=== PATIENT | female | born 1945 | race Caucasian/White ===

== ENCOUNTER 2020-01-25 09:00 | Outpatient (CLI) | payer OTHER, SELFPAY | END 2020-01-27 13:00 | disposition other institution (70) | PROVIDERS: PCP Internal Medicine; Visit Provider Internal Medicine | DX: H91.90 Unspecified hearing loss, unspecified ear (principal) | CPT/HCPCS: 92557; 92567 ==

== ENCOUNTER 2020-03-17 07:55 | Outpatient (CLI) | payer OTHER, SELFPAY ==
--- NOTE | ~2020-03-17 | DEXA_ITS ---
Bone Density Report Name: Stephanie Mcarthur Age: 74 Sex: Female Ethnicity: White Date of : 1945 Indication: postmenopausal; height loss; prior fracture; cancer; Referring Provider: ANNIE DESAI Study: Bone densitometry was performed. Exam Date: March 17, 2020 Accession number: [id number] Bone Density: Region BMD T-score Z-score Classification AP Spine (L1-L4) 0.818 -2.1 0.2 Osteopenia Femoral Neck (Left) 0.642 -1.9 0.1 Osteopenia Total Hip (Left) 0.733 -1.7 -0.1 Osteopenia Total Hip Bilateral Avg 0.698 -2.0 -0.4 Osteopenia Femoral Neck (Right) 0.567 -2.5 -0.6 Osteoporosis Total Hip (Right) 0.662 -2.3 -0.7 Osteopenia World Health Organization criteria for BMD impression classify patients as: Normal (T-score at or above -1.0), Osteopenia (T-score between -1.0 and -2.5), or Osteoporosis (T-score at or below -2.5). 10-year Fracture Risk: FRAX not reported because: Some T-score for Spine Total or Hip Total or Femoral Neck at or below -2.5 Clinical Information Provided by Patient: Has had a low trauma fracture Has the following medical conditions: Cancer Patient maximum height was 64.5 Menopause Age: 53 No regular weight bearing exercise Onset of menses at age 13 Number of children 1 Impression: The patient has established osteoporosis, based on the Right Femoral Neck T-score and the existence of a prior fracture. The patient has risk factors, including: previous fracture. Discussion: HIGH RISK OF FRACTURE. BONE DENSITY IS UNDESIRABLY LOW AT ONE OR MORE SKELETAL SITES, CONSISTENT WITH POSTMENOPAUSAL OSTEOPOROSIS. This patient's lowest T-score, in a patient who has previously fractured, meets the World Health Organization's (WHO) criteria for severe osteoporosis. In untreated patients, the risk of osteoporotic fracture increases approximately two-fold for each 1.0 SD decrease in T-score. Low bone density is not the only risk factor for fracture; also consider factors such as patient's age, frailty or poor health, risk of falling, risk of injury, previous osteoporotic fracture, family history of osteoporosis, cigarette smoking, low body weight, etc. Not everyone with low bone mineral density has osteoporosis; osteomalacia and other metabolic bone disorders should also be considered. Patients who have osteoporosis should be evaluated for specific diseases and conditions (secondary causes) that may cause or contribute to bone loss. The [place] [employer]ocrinologists (AACE) and National Osteoporosis Foundation (NOF) recommend pharmacologic intervention for all postmenopausal women whose T-score is in this range. The patient should follow a healthful lifestyle (good nutrition with adequate calcium and vitamin D, and appropriate weight-bearing exercise). Follow-Up: Consider a repeat BMD and Gurinder
== END 2020-03-17 07:56 | disposition home or self-care (01) ==
LOC: ANHIMG 07:58
PROVIDERS: PCP Internal Medicine; Visit Provider Internal Medicine
DX: Z78.0 Asymptomatic menopausal state (principal); M85.89 Other specified disorders of bone density and structure, multiple sites; M81.0 Age-related osteoporosis without current pathological fracture
CPT/HCPCS: 77080

== ENCOUNTER → 2020-05-07 02:28 | Outpatient (CLI) | payer OTHER, SELFPAY ==
[2020-05-07 20:23] LABS: SARS-CoV-2 RNA PCR Negative
== END ==
PROVIDERS: PCP Internal Medicine; Visit Provider Internal Medicine Gastroenterology
DX: Z01.812 Encounter for preprocedural laboratory examination (principal); Z20.822 Contact with and (suspected) exposure to COVID-19
CPT/HCPCS: C9803; U0003; U0005

== ENCOUNTER 2020-05-11 00:50 | Day surgery (SDC) | payer OTHER, SELFPAY ==
[2020-04-27 14:56] VITALS: BMI 24.5
[2020-05-11 06:59] VITALS: BP 129/71; PULSE 72; RESP 18; TEMP 37; O2SAT 99; BMI 23.1
[2020-05-11] MEDS: LACTATED RINGERS 1,000 ML 150 ML IV CONT (07:10)
--- NOTE | 2020-05-11 07:20 | PM.HPGS ---
History of Present Illness History of Present Illness Consent: Risks, benefits, and alternatives have been discussed and questions answered. Patient agrees to proceed with procedure. Chief complaint: Neoplasm Screening Narrative: Stephanie Mcarthur is a 74 year old female referred for colon cancer screening. Her mother had colon cancer Review of Systems Review of Systems: All systems reviewed & are unremarkable except as noted in HPI and below PMFSH Past Medical History Medical History (Updated 05/11/20 @ 07:21 by Vamsi Kidd MD) Atypical chest pain Shoulder pain, bilateral Family History Family History Father Hypertension Family history of coronary artery disease Carcinoma of colon Mother Hypertension Carcinoma of colon Grandparent Diabetes mellitus Family history of malignant neoplasm of breast Sibling Family history of malignant neoplasm Other Family history of heart disease in male family member before age 55 Family history of malignant neoplasm of male breast Social History Social History Smoking status: Never smoker Second hand tobacco smoke exposure: No Alcohol intake: current Drinks per week: 3 Substance use type: does not use Living arrangements: with family Spiritual care concerns: No Meds Home Medications and Allergies Home Medications Medication Instructions Recorded Confirmed Type aspirin 81 mg tablet,delayed 81 mg PO DAILY 02/02/19 05/11/20 History release omeprazole 20 mg capsule,delayed See Rx Instructions .ROUTE 12/28/19 05/11/20 Rx release .COMPLEX #90 cap alprazolam 0.25 mg tablet 0.25 mg PO BID #180 tablet 02/15/20 05/11/20 Rx Allergies Allergy/AdvReac Type Severity Reaction Status Date / Time mercury (elemental) Allergy Unknown UNKNOWN Verified 05/11/20 06:57 Vital Signs Vital Signs - 24 hr 05/11/20 06:59 Temperature 37.0 C Pulse Rate 72 Respiratory Rate 18 Blood Pressure 129/71 Pulse Oximetry 99 Exam Resp: Auscultation: clear to auscultation bilaterally Cardio: Rate: regular rate Rhythm: regular rhythm GI: GI Palp: Yes Soft to palpation and No Tenderness to palpation present (GI) Assessment and Plan Assessment and plan (1) Colon cancer screening: Code(s): Z12.11 - Encounter for screening for malignant neoplasm of colon Status: Acute Assessment and Plan: Colonoscopy with possible biopsy or polypectomy or cautery or injection of substances.
--- NOTE | 2020-05-11 07:25 | WPDANESEPPF ---
Anes - Initial Pre Proc Eval Procedure: Operation Date: 05/11/20 08:00 Proposed Procedures p Screening Colonoscopy - Vamsi Kidd MD Date/Time: 05/11/20 07:25 Surgeon: Vamsi Kidd MD Pre Op Diagnosis: Neoplasm Screening Patient Data Age: 74 Gender: F Height: 5 ft 4 in Weight: 61.3 kg Last Vital Signs Temp 98.6 F 05/11/20 06:59 Pulse 72 05/11/20 06:59 Resp 18 05/11/20 06:59 BP 129/71 05/11/20 06:59 Pulse Ox 99 05/11/20 06:59 Allergies Allergy/AdvReac Type Severity Reaction Status Date / Time mercury (elemental) Allergy Unknown UNKNOWN Verified 05/11/20 06:57 Home Medications Medication Instructions Recorded Confirmed Type aspirin 81 mg tablet,delayed 81 mg PO DAILY 02/02/19 05/11/20 History release omeprazole 20 mg capsule,delayed See Rx Instructions .ROUTE 12/28/19 05/11/20 Rx release .COMPLEX #90 cap alprazolam 0.25 mg tablet 0.25 mg PO BID #180 tablet 02/15/20 05/11/20 Rx Patient hx anesthesia problems: none Family hx anesthesia problems: none PMFSH Past Medical History Medical History (Updated 05/11/20 @ 07:21 by Vamsi Kidd MD) Atypical chest pain Shoulder pain, bilateral Family History Family History Father Hypertension Family history of coronary artery disease Carcinoma of colon Mother Hypertension Carcinoma of colon Grandparent Diabetes mellitus Family history of malignant neoplasm of breast Sibling Family history of malignant neoplasm Other Family history of heart disease in male family member before age 55 Family history of malignant neoplasm of male breast Social History Social History Smoking status: Never smoker Second hand tobacco smoke exposure: No Alcohol intake: current Drinks per week: 3 Substance use type: does not use Living arrangements: with family Spiritual care concerns: No Anes - Eval Final PreProcedure Day of Procedure 05/11/20 07:25 Patient weight: normal Heart: regular rate and rhythm Lungs: clear to auscultation Airway: Mallampati scale class II Neurological: alert and oriented Last oral intake: >/= 8 hours ASA classification: II Emergent: no Anesthetic plan: proceed Anesthesia type and monitoring: general GIVS and standard monitoring Informed Consent: The patient's anesthetic plan and its attendant risks and benefits were discussed with the patient/family/POA. Questions were solicited and answers provided to the satisfaction of the patient/family/POA.
[2020-05-11 08:12] VITALS: BP 101/62; PULSE 71; RESP 29; O2SAT 100
[2020-05-11 08:22] VITALS: BP 105/59; PULSE 70; RESP 29; O2SAT 100
[2020-05-11 08:32] VITALS: BP 114/72; PULSE 63; RESP 20; O2SAT 100
== END 2020-05-11 08:39 | disposition home or self-care (01) ==
PROVIDERS: PCP Internal Medicine; Visit Provider Internal Medicine Gastroenterology
PROC: 0DJD8ZZ Inspection of Lower Intestinal Tract, Via Natural or Artificial Opening Endoscopic (ICD-10-PCS; CPT 45378; principal; 2020-05-11 08:00)
DX: Z12.11 Encounter for screening for malignant neoplasm of colon (principal); K57.30 Diverticulosis of large intestine without perforation or abscess without bleeding; Z80.0 Family history of malignant neoplasm of digestive organs; Z79.82 Long term (current) use of aspirin
CPT/HCPCS: G0105; C9803; J2704; J7120; U0003; U0005

== ENCOUNTER 2021-01-13 10:40 | Emergency (ER) | payer OTHER, SELFPAY ==
[2021-01-13] VITALS (8 sets, daily range): BP systolic 120–139; BP diastolic 76–89; PULSE 69–95; RESP 18–27; TEMP 36.4–36.5; O2SAT 96–100
[2021-01-13 14:57] LABS: Basophils Percent Auto 0.2 % (0.2-1.2); Eosinophils Percent Auto 0.2 % (0-4.4); Hematocrit 44.6 % (37.0-47.0); Hemoglobin 14.9 g/dL (12.0-15.0); Immature Granulocyte Absolute 0.06 K/mm3 (0.00-0.031); Immature Granulocyte Percent A 0.5 % (0-0.5); Lymphocytes Absolute Auto 0.46 K/mm3 (0.9-3.2); Lymphocytes Percent Auto 3.7 % (18.3-44.2); Mean Corpuscular HGB Conc 33.4 g/dl (32-36); Mean Corpuscular Hemoglobin 28.7 pg (26-34); Mean Corpuscular Volume 85.9 fl (80-100); Mean Platelet Volume 8.6 fl (7.4-10.4); Monocytes Absolute Auto 0.6 K/mm3 (0.1-0.6); Monocytes Percent Auto 5.2 % (2.6-8.5); Neutrophils Absolute Auto 11.1 K/mm3 (1.3-6.7); Neutrophils Percent Auto 90.2 % (45.5-73.1); Platelet Count Result 204 k/mm3 (150-375); Red Blood Count 5.19 M/mm3 (4.2-5.4); Red Cell Distribution Width 12.1 % (11.5-14.5); White Blood Count 12.3 K/mm3 (4.5-10.0)
[2021-01-13] MEDS: ONDANSETRON INJ 4 MG/2 ML VIAL IV PUSH (15:03)
[2021-01-13] MEDS: PANTOPRAZOLE SODIUM IV 40 MG VIAL IV PUSH (15:03)
[2021-01-13 15:08] LABS: Alanine Aminotransferase 21 U/L (4-35); Albumin Level 4.3 g/dL (3.5-5.1); Alkaline Phosphatase 70 U/L (38-126); Anion Gap 9 mmol/L (8-16); Aspartate Amino Transferase 32 U/L (14-36); Bilirubin,Total 0.7 mg/dL (0.2-1.3); Blood Urea Nitrogen 18 mg/dL (7-17); Calcium 8.9 mg/dL (8.4-10.2); Carbon Dioxide 22 mmol/L (22-30); Chloride 107 mmol/L (98-107); Estimated Glomerular Filt Rate > 60; Glucose 101 mg/dL (65-110); Potassium 4.1 mmol/L (3.4-5.0); Sodium 138 mmol/L (137-145)
[2021-01-13 15:10] LABS: INR 0.9; Prothrombin Time 12.5 Seconds (11.1-14.7)
[2021-01-13 15:11] LABS: Partial Thromboplastin Time 20.8 SECONDS (22.3-36.8)
--- NOTE | 2021-01-13 15:28 | ED.GIBLEED ---
HPI - GI Bleed General Chief complaint: GI Bleed Stated complaint: Vomiting blood+ Time Seen by Provider: 01/13/21 13:42 Source: patient and RN notes reviewed Mode of arrival: ambulatory Limitations: no limitations History of Present Illness HPI Narrative: This is 75 year old female who presents for evaluation of blood in emesis. Patient states today around 10 am she developed nonbilious emesis with mucous streak of blood but no clots. She reports she has had 3 other episodes of emesis. Her 2nd episode was pink and 3rd and 4th did not have any blood. She denies abdominal pain, fever, or dizziness. She does not take any blood thinner. She reports an episode of diarrhea but denies blood in her stool or melena. She is not on anticoagulation. Related Data Home Medications Medication Instructions Recorded Confirmed aspirin 81 mg tablet,delayed 81 mg PO DAILY 02/02/19 08/29/20 release Allergies Allergy/AdvReac Type Severity Reaction Status Date / Time No Known Allergies Allergy Verified 08/29/20 15:10 Review of Systems Review of Systems: All systems reviewed & are unremarkable except as noted in HPI and below PMFSH Past Medical History Medical History (Updated 01/14/21 @ 00:01 by [facility]) Atypical chest pain Shoulder pain, bilateral Family History Family History Father Hypertension Family history of coronary artery disease Carcinoma of colon Mother Hypertension Carcinoma of colon Grandparent Diabetes mellitus Family history of malignant neoplasm of breast Sibling Family history of malignant neoplasm Other Family history of heart disease in male family member before age 55 Family history of malignant neoplasm of male breast Social History Social History Second hand tobacco smoke exposure: No Alcohol intake: current Drinks per week: 3 Substance use type: does not use Spiritual care concerns: No Exam Const: General: no acute distress and alert Orientation/consciousness: patient oriented x3 HENMT: Head: normocephalic and atraumatic Eyes: EOM: EOMs intact bilaterally Chest: Chest palpation & inspection: normal inspection of the chest Resp: Effort & Inspection: normal respiratory effort and no retractions Auscultation: clear to auscultation bilaterally Cardio: Rate: regular rate Rhythm: regular rhythm Heart sounds: no murmurs GI: GI Palp: Yes Soft to palpation, No Tenderness to palpation present (GI) and No Guarding due to palpation present (GI) Auscultation: normal bowel sounds Other: guaiac negative Back/Spine/Pelvis: Back: no CVA tenderness Skin: General skin exam: normal color Neuro: General: patient oriented x3, moves all extremities and CN's II-XI intact bilaterally Psych: Mental Status: mental status grossly normal Affect: normal affect Course Reevaluation(s) Reevaluation #1: Patient has no complaints here. She is guaiac negative with normal vital signs and hemoglobin. She was able to drink without nausea, vomiting or abdominal pain. I discussed discharge plan Date: 01/13/21 Time: 17:32 Vital Signs Vital signs: Vital Signs Temperature 97.7 F 01/13/21 10:51 Pulse Rate 89 01/13/21 10:51 Respiratory Rate 18 01/13/21 10:51 Blood Pressure 135/89 01/13/21 10:51 Pulse Oximetry 100 01/13/21 10:51 Temperature 97.6 F 01/13/21 12:41 Pulse Rate 69 01/13/21 17:51 Respiratory Rate 20 01/13/21 17:51 Blood Pressure 125/87 01/13/21 17:51 Pulse Oximetry 96 01/13/21 16:15 MDM - GI Bleed Lab Data Attestation: I reviewed the patient's lab results. Result diagrams: 01/13/21 14:39 01/13/21 14:39 Labs: Lab Results 01/13/21 01/13/21 01/13/21 Range/Units 14:39 14:39 14:39 WBC 12.3 H (4.5-10.0) K/mm3 RBC 5.19 (4.2-5.4) M/mm3 Hgb 14.9 (12.0-
[2021-01-13] MEDS: SODIUM CHLORIDE 0.9% IV 1,000 ML 999 ML IV CONT (16:21)
== END 2021-01-13 17:52 | disposition home or self-care (01) ==
PROVIDERS: Emergency Provider General Practice; PCP Internal Medicine
DX: R11.2 Nausea with vomiting, unspecified (principal); Z79.82 Long term (current) use of aspirin
CPT/HCPCS: 36415; 80053; 85025; 85610; 85730; 86850; 86900; 86901; 96361; 96374; 96375; 99284; C9113; J2405; J7030

== ENCOUNTER 2022-02-28 08:22 | Outpatient (CLI) | payer OTHER, SELFPAY ==
[2022-02-28 20:02] LABS: Alanine Aminotransferase 25 U/L (6-35); Albumin Level 4.2 g/dL (3.5-5.1); Alkaline Phosphatase 68 U/L (38-126); Anion Gap 3 mmol/L (8-16); Aspartate Amino Transferase 29 U/L (14-36); Bilirubin,Total 0.6 mg/dL (0.2-1.3); Blood Urea Nitrogen 17 mg/dL (7-17); Calcium 8.6 mg/dL (8.4-10.2); Carbon Dioxide 32 mmol/L (22-30); Chloride 104 mmol/L (98-107); Cholesterol 197 mg/dL (0-200); Estimated Glomerular Filt Rate > 60; Glucose 82 mg/dL (65-110); HDL Direct 73 mg/dL; Potassium 4.4 mmol/L (3.4-5.0); Sodium 139 mmol/L (137-145); Triglycerides 63 mg/dL (<150)
[2022-02-28 20:13] LABS: LDL Cholesterol Direct 95 mg/dL
== END 2022-02-28 08:23 | disposition home or self-care (01) ==
LOC: ANHGOSHLAB 08:23
PROVIDERS: PCP Family Medicine; Visit Provider Family Medicine
DX: Z13.220 Encounter for screening for lipoid disorders (principal); Z13.228 Encounter for screening for other metabolic disorders; Z13.29 Encounter for screening for other suspected endocrine disorder
CPT/HCPCS: 36415; 80053; 80061; 84443

== ENCOUNTER 2022-05-02 07:32 | Outpatient (CLI) | payer OTHER, SELFPAY ==
--- NOTE | ~2022-05-02 | DEXA_ITS ---
Bone Density Report Name: KRIS DIA Age: 76 Sex: Female Ethnicity: White Date of : 1945 Indication: osteopenia; height loss; prior fracture; cancer; postmenopausal Referring Provider: NISREEN URIBE Study: Bone densitometry was performed. Exam Date: May 02, 2022 Accession number: [id number] Bone Density: Region BMD T-score Z-score Classification AP Spine(L1-L4) 0.839 -1.9 0.5 Osteopenia Femoral Neck (Left) 0.597 -2.3 -0.2 Osteopenia Total Hip (Left) 0.691 -2.1 -0.3 Osteopenia Femoral Neck (Right) 0.573 -2.5 -0.4 Osteoporosis Total Hip (Right) 0.683 -2.1 -0.4 Osteopenia Total Hip Mean 0.687 -2.1 -0.4 Osteopenia World Health Organization criteria for BMD impression classify patients as: Normal (T-score at or above -1.0), Osteopenia (T-score between -1.0 and -2.5), or Osteoporosis (T-score at or below -2.5). 10-year Fracture Risk: FRAX not reported because: Some T-score for Spine Total or Hip Total or Femoral Neck at or below -2.5 Previous Exams: Region Exam Age BMD T-score BMD Change BMD Change Date g/cm2 vs Baseline vs Previous AP Spine (L1-L4) 05/02/2022 76 0.839 -1.9 0.020 (2.5%) 0.020 (2.5%) 03/17/2020 74 0.818 -2.1 Total Hip(Left) 05/02/2022 76 0.691 -2.1 -0.042 (-5.7%) -0.042 (-5.7%) 03/17/2020 74 0.733 -1.7 Total Hip(Right) 05/02/2022 76 0.683 -2.1 0.021 (3.1%) 0.021 (3.1%) 03/17/2020 74 0.662 -2.3 *Denotes significance at 95% confidence level, LSC for AP Spine = 0.022 g/cm2, LSC for Total Hip = 0.027 g/cm2 Clinical Information Provided by Patient: Has had a low trauma fracture Has used the following medications: Vitamin D, Calcium Has the following medical conditions: Cancer Patient maximum height was 64 Menopause Age: 53 Onset of menses at age 14 Number of children 1 Impression: The patient has established osteoporosis, based on the Right Femoral Neck T-score and the existence of a prior fracture. The patient has risk factors, including: previous fracture. The BMD for the Total Hip(Left) decreased, changing by -5.7% since the last DXA exam. Discussion: HIGH RISK OF FRACTURE. BONE DENSITY IS UNDESIRABLY LOW AT ONE OR MORE SKELETAL SITES, CONSISTENT WITH POSTMENOPAUSAL OSTEOPOROSIS. This patient's lowest T-score, in a patient who has previously fractured, meets the World Health Organization's (WHO) criteria for severe osteoporosis. In untreated patients, the risk of osteoporotic f
== END 2022-05-02 07:33 | disposition home or self-care (01) ==
PROVIDERS: PCP Family Medicine; Visit Provider Obstetrics & Gynecology
DX: Z78.0 Asymptomatic menopausal state (principal); M85.88 Other specified disorders of bone density and structure, other site; M85.852 Other specified disorders of bone density and structure, left thigh; M85.851 Other specified disorders of bone density and structure, right thigh; M81.0 Age-related osteoporosis without current pathological fracture
CPT/HCPCS: 77080

== ENCOUNTER 2022-12-14 06:25 | Emergency (ER) | payer OTHER, SELFPAY ==
--- NOTE | ~2022-12-14 | XR_ITS ---
EXAMINATION: XR finger 2nd RT min 2V DATE: 12/14/2022 07:15 INDICATION: Right hand second digit laceration. TECHNIQUE: 3 views of right hand second digit were obtained. COMPARISON: None. FINDINGS: Bone alignment is normal. No fracture. There is mild osteoarthritis of second metacarpophal angeal joint and proximal and distal interphalangeal joints. There is a laceration of the tip of the finger. No radiopaque foreign body. IMPRESSION: 1. Polyarticular osteoarthritis. Reviewed, dictated and finalized at location E.
[2022-12-14 06:27] VITALS: BP 166/81; PULSE 84; RESP 16; TEMP 36.1; O2SAT 100
--- NOTE | 2022-12-14 07:31 | ED.WOUNDLAC ---
HPI - Wound/Laceration General Chief Complaint: Wound/Laceration Stated Complaint: cut to finger Time Seen by Provider: 12/14/22 07:10 Source: patient Mode of arrival: ambulatory Limitations: no limitations History of Present Illness HPI narrative: Patient lacerated the tip of the right index while trying to manage a toaster, prior to arrival. No other injuries. Bleeding controlled Related Data Allergies Allergy/AdvReac Type Severity Reaction Status Date / Time No Known Allergies Allergy Verified 12/14/22 06:44 Review of Systems Review of Systems: All systems reviewed & are unremarkable except as noted in HPI and below PMFSH Past Medical History Medical History Atypical chest pain Shoulder pain, bilateral Surgical History Surgical History History of cholecystectomy History of lumpectomy of left breast History of tubal ligation Family History Family History Father Hypertension Family history of coronary artery disease Carcinoma of colon Mother Hypertension Carcinoma of colon Grandparent Diabetes mellitus Family history of malignant neoplasm of breast Sibling Family history of malignant neoplasm Other Family history of heart disease in male family member before age 55 Family history of malignant neoplasm of male breast Social History Social History Smoking status: Never smoker Second hand tobacco smoke exposure: No Alcohol intake: current Drinks per week: 3 Substance use: never Substance use type: does not use Lack of Transportation: No Lack of Food: Never True Current Housing: I Have Housing Concerned About Future Housing: No Difficulty Paying Gas/Electric Bills: No Difficulty Paying for Meds: No Currently Unemployed: No Education: Bachelor's Degree Difficulty w/ Childcare or Family Care: No Living arrangements: alone Additional living arrangements comments: 10/2021 Occupation/Education: retired Gender identity (if verbalized by the patient): Female Sexual Orientation (if Verbalized by the Patient): Straight or Heterosexual Spiritual care concerns: No Agree to blood products: Yes Exam Narrative: General appearance: Well-developed, well-nourished Skin: Normal color Vascular: Normal peripheral pulses, normal capillary refill. Musculoskeletal: Normal range of motion, nontender back, right index that showed 3 mm flap laceration at the palmar side of the tip. No active bleeding. Subcutaneous. Neurologic: Alert and oriented ?3, FINANCIAL SOLUTIONS ADVISOR is normal as tested, no gross motor deficit Course Vital Signs Vital signs: Vital Signs Temperature 36.1 C L 12/14/22 06:27 Pulse Rate 84 12/14/22 06:27 Respiratory Rate 16 12/14/22 06:27 Blood Pressure 166/81 H 12/14/22 06:27 Pulse Oximetry 100 12/14/22 06:27 Oxygen Delivery Room Air 12/14/22 06:27 Temperature 36.1 C L 12/14/22 06:27 Pulse Rate 84 12/14/22 06:27 Respiratory Rate 16 12/14/22 06:27 Blood Pressure 166/81 H 12/14/22 06:27 Pulse Oximetry 100 12/14/22 06:27 Oxygen Delivery Room Air 12/14/22 06:27 Procedures Laceration Laceration 1: Date: 12/14/22 Time: 08:25 Site: hand Side (If applicable): right Size (cm): 0.3 Description: flap Depth: simple, single layer Local Anesthetic: none Pre-repair: wound explored and irrigated ====== Skin Level ====== Skin layer closed with:
[2022-12-14 08:45] VITALS: BP 130/70; PULSE 70; RESP 16; O2SAT 98
== END 2022-12-14 08:45 | disposition home or self-care (01) ==
PROVIDERS: Emergency Provider Emergency Medicine; PCP Family Medicine
DX: S61.210A Laceration without foreign body of right index finger without damage to nail, initial encounter (principal); Z90.49 Acquired absence of other specified parts of digestive tract; M19.041 Primary osteoarthritis, right hand; W26.8XXA Contact with other sharp object(s), not elsewhere classified, initial encounter
CPT/HCPCS: 12001; 73140; 90471; 99283

== ENCOUNTER 2023-03-27 09:10 | Outpatient (CLI) | payer OTHER, SELFPAY ==
[2023-03-27 12:32] LABS: Alanine Aminotransferase 36 U/L (6-35); Albumin Level 4.2 g/dL (3.5-5.1); Alkaline Phosphatase 60 U/L (38-126); Anion Gap 5 mmol/L (8-16); Aspartate Amino Transferase 51 U/L (14-36); Bilirubin,Total 0.5 mg/dL (0.2-1.3); Blood Urea Nitrogen 14 mg/dL (7-17); Calcium 9.6 mg/dL (8.4-10.2); Carbon Dioxide 29 mmol/L (22-30); Chloride 105 mmol/L (98-107); Cholesterol 195 mg/dL (0-200); Estimated Glomerular Filt Rate > 60; Glucose 116 mg/dL (65-110); HDL Direct 66 mg/dL; Potassium 4.2 mmol/L (3.4-5.0); Sodium 139 mmol/L (137-145); Triglycerides 122 mg/dL (<150)
[2023-03-27 12:46] LABS: LDL Cholesterol Direct 94 mg/dL
== END 2023-03-27 09:11 | disposition home or self-care (01) ==
LOC: ANHGOSHLAB 09:12
PROVIDERS: PCP Family Medicine; Visit Provider Family Medicine
DX: E78.5 Hyperlipidemia, unspecified (principal); Z13.220 Encounter for screening for lipoid disorders; Z13.228 Encounter for screening for other metabolic disorders; Z13.29 Encounter for screening for other suspected endocrine disorder
CPT/HCPCS: 36415; 80053; 80061; 84443

== ENCOUNTER 2023-04-12 10:29 | Emergency (ER) | payer OTHER, SELFPAY ==
[2023-04-12] VITALS (16 sets, daily range): BP systolic 131–176; BP diastolic 72–92; PULSE 69–81; RESP 16–28; TEMP 36.4; O2SAT 95–100
--- NOTE | ~2023-04-12 | CT_ITS ---
EXAMINATION: CT brain wo con DATE: 04/12/2023 11:13 INDICATION: Brain fog TECHNIQUE: Computed tomography (CT) of the head was performed without intravenous contrast. Sagittal and coronal reconstructions were performed. The mA was adjusted according to patient size. Iterative reconstruction technique was employed. The dose-length product was 605.33 mGy-cm. COMPARISON: None FINDINGS: No acute intracranial hemorrhage, acute infarction or abnormal extra axial fluid collection. There is mild scattered white matter hypoattenuation consistent with chronic small vessel ischemic disease. S ymmetric prominence of the sulci and subarachnoid spaces overlying the convexities consistent with mi ld age-appropriate diffuse cerebral volume loss. Ventricles are normal and symmetric. No mass/mass ef fect. Intracranial calcified cerebral atherosclerosis is noted. The orbits, paranasal sinuses and mas toid air cells are normal. IMPRESSION: 1. No acute intracranial process. 2. Age-related changes including mild diffuse volume loss and mild scattered white matter hypoattenua tion consistent with chronic small vessel ischemic disease. Reviewed, dictated and finalized at location B. L ADMINISTRATIVE ASSISTANT IMPRESSION: 1. No acute intracranial process. 2. Age-related changes including mild diffuse volume loss and mild scattered wh ite matter hypoattenuation consistent with chronic small vessel ischemic diseas e.
--- NOTE | ~2023-04-12 | XR_ITS ---
EXAMINATION: XR chest 1V DATE: 04/12/2023 11:16 INDICATION: Brain fog TECHNIQUE: PA view of the chest was obtained. COMPARISON: Chest radiograph dated 01/07/2015 FINDINGS: The lungs remain clear with no focal airspace opacities, pulmonary edema, pleural effusion or pneumot horax. The cardiomediastinal silhouette is normal. Postoperative change of prior left mastectomy and axillary lymph node dissection with surgical clips at the anterior left chest wall and left axilla. C holecystectomy clips in the right upper quadrant. IMPRESSION: 1. No acute cardiopulmonary disease. Reviewed, dictated and finalized at location B. CLEANER
--- NOTE | 2023-04-12 10:55 | ED.NEUROSD ---
HPI - Neuro Symptoms/Deficit General Chief Complaint: Neuro Symptoms/Deficit Stated Complaint: feeling of loss of time Time Seen by Provider: 04/12/23 10:50 Source: patient Mode of arrival: ambulatory Limitations: no limitations History of Present Illness HPI Narrative: Stephanie is a 77-year-old female patient presenting to the ER today with complaints of feeling as though she had a episode feeling loss of time states that she was sitting at the computer and had lost time for about 15 minutes today around [id number]. She reports that she really remember looking at the computer and rating thinks on the computer but felt as though she was kind of out of body. Reports that she did take her blood pressure after that and it was in the 170 systolic. She denies any headache, visual changes, blurry vision, dizziness, chest pain, or shortness of breath Related Data Home Medications Medication Instructions Recorded Confirmed pantoprazole 40 mg tablet,delayed 40 mg PO QAM 02/18/23 03/27/23 release Allergies Allergy/AdvReac Type Severity Reaction Status Date / Time No Known Allergies Allergy Verified 03/27/23 08:58 Review of Systems Review of Systems: Pertinent positives per HPI. Patient denies any fever, chills, rash, headache, visual changes, dizziness, cough, runny nose, sore throat, shortness of breath, chest pain, palpitations, nausea, vomiting, diarrhea, constipation, abdominal pain, or any urinary issues. [facility] Past Medical History Medical History Atypical chest pain Shoulder pain, bilateral Surgical History Surgical History History of cholecystectomy History of lumpectomy of left breast History of tubal ligation Family History Family History Father Hypertension Family history of coronary artery disease Carcinoma of colon Mother Hypertension Carcinoma of colon Grandparent Diabetes mellitus Family history of malignant neoplasm of breast Sibling Family history of malignant neoplasm Other Family history of heart disease in male family member before age 55 Family history of malignant neoplasm of male breast Social History Social History Smoking status: Never smoker Second hand tobacco smoke exposure: No Alcohol intake: current Drinks per week: 3 Substance use: never Substance use type: does not use Lack of Transportation: No Lack of Food: Never True Current Housing: I Have Housing Concerned About Future Housing: No Difficulty Paying Gas/Electric Bills: No Difficulty Paying for Meds: No Currently Unemployed: No Education: Bachelor's Degree Difficulty w/ Childcare or Family Care: No Living arrangements: alone Additional living arrangements comments: 10/2021 Occupation/Education: retired Gender identity (if verbalized by the patient): Female Sexual Orientation (if Verbalized by the Patient): Straight or Heterosexual Spiritual care concerns: No Agree to blood products: Yes Comments At the time of my signature, I reviewed and agree with the nursing past medical, surgical, social, and family history. There is no relevant family history pertinent to the patient complaint. Exam Narrative: General: Well-developed, well nourished, in no apparent distress Head: Normocephalic, atraumatic Eyes: Pupils equally round and reactive to light bilaterally, EOM intact, sclera and conjunctive clear, no discharge, lids normal Ears: TMs intact and clear, ear canals clear, no drainage, grossly hearing normal. Nose: Nares patent, no discharge, no inflammation, no sinus tenderness. Mouth: Oropharynx without lesions or masses, good dentition, MMM. Tongue midline, even rise and fall of uvula Neck: Supple, trachea
--- NOTE | 2023-04-12 10:57 | ECG_ITS ---
Measurements Intervals [place] Rate: 75 P: 40 MA: 156 QRS: -5 QRSD: 69 T: 31 QT: 372 QTc: 418 Interpretive Statements SINUS RHYTHM POSSIBLE LEFT ATRIAL ENLARGEMENT LOW QRS VOLTAGE IN LIMB LEADS BASELINE ARTIFACT- I, II, III, AVR, AVL, AVF BORDERLINE ECG NO PREVIOUS ECG AVAILABLE FOR COMPARISON Electronically Signed On 04-12-2023 12:13:30 MOVING VAN DRIVER by José Manuel Avila D.O.
[2023-04-12 11:38] LABS: Basophils Absolute Auto 0.1 K/mm3 (0.0-0.1); Eosinophils Percent Auto 0.3 % (0-4.4); Hematocrit 43.7 % (37.0-47.0); Hemoglobin 14.1 g/dL (12.0-15.0); Immature Granulocyte Absolute 0.02 K/mm3 (0.00-0.031); Immature Granulocyte Percent A 0.3 % (0-0.5); Lymphocytes Percent Auto 16.9 % (18.3-44.2); Mean Corpuscular HGB Conc 32.3 g/dl (32-36); Mean Corpuscular Volume 86.9 fl (80-100); Mean Platelet Volume 8.4 fl (7.4-10.4); Monocytes Absolute Auto 0.3 K/mm3 (0.1-0.6); Monocytes Percent Auto 5.1 % (2.6-8.5); Neutrophils Absolute Auto 4.5 K/mm3 (1.3-6.7); Neutrophils Percent Auto 76.4 % (45.5-73.1); Platelet Count Result 253 k/mm3 (150-375); Red Blood Count 5.03 M/mm3 (4.2-5.4); Red Cell Distribution Width 12.7 % (11.5-14.5); White Blood Count 5.9 K/mm3 (4.5-10.0)
[2023-04-12 11:48] LABS: Alanine Aminotransferase 26 U/L (6-35); Albumin Level 4.3 g/dL (3.5-5.1); Alkaline Phosphatase 53 U/L (38-126); Anion Gap 5 mmol/L (8-16); Aspartate Amino Transferase 32 U/L (14-36); Bilirubin,Total 0.5 mg/dL (0.2-1.3); Blood Urea Nitrogen 18 mg/dL (7-17); Calcium 9.2 mg/dL (8.4-10.2); Carbon Dioxide 28 mmol/L (22-30); Chloride 105 mmol/L (98-107); Estimated CRCL calculation 54 ml/min; Estimated Glomerular Filt Rate > 60; Glucose 103 mg/dL (65-110); Sodium 138 mmol/L (137-145)
[2023-04-12 11:49] LABS: INR 0.9; Prothrombin Time 12.8 Seconds (11.1-14.7)
[2023-04-12 11:49] LABS: Appearance Urine Clear (Clear); Bilirubin Urine Negative (Negative); Blood Urine Negative (Negative); Color Urine Yellow (Yellow); Glucose Urine UA Negative (Negative); Ketones Urine Negative (Negative); Leukocyte Esterase Ur Negative LEU/UL (Negative); Nitrate Urine Negative (Negative); Protein Urine Negative (Negative); Specific Grav Ur 1.009 (1.001-1.035); Urobilinogen Urine 0.2 mg/dL (<2.0); pH Urine 7.5 (5.0-9.0)
[2023-04-12 11:50] LABS: Partial Thromboplastin Time 24.9 SECONDS (22.3-36.8)
[2023-04-12 12:00] LABS: Troponin I < 0.012 ng/mL (0.000-0.034)
[2023-04-12 12:09] LABS: Add Urine Microscopic? NO
== END 2023-04-12 12:42 | disposition home or self-care (01) ==
PROVIDERS: Emergency Provider Nurse Practitioner Family; PCP Family Medicine
DX: R41.89 Other symptoms and signs involving cognitive functions and awareness (principal); R03.0 Elevated blood-pressure reading, without diagnosis of hypertension; Z90.49 Acquired absence of other specified parts of digestive tract; Z79.899 Other long term (current) drug therapy
CPT/HCPCS: 36415; 70450; 71045; 80053; 81003; 84484; 85025; 85610; 85730; 93005; 99284

== ENCOUNTER 2023-07-20 21:27 | Emergency (ER) | payer OTHER, SELFPAY ==
[2023-07-20 21:27] VITALS: BP 130/79; PULSE 90; RESP 20; TEMP 36.6; O2SAT 98
[2023-07-20 21:37] VITALS: PULSE 81; RESP 18; O2SAT 99
[2023-07-20] MEDS: LACTATED RINGERS 1,000 ML 999 ML IV CONT ×2 (21:37→22:47)
[2023-07-20 21:46] LABS: Basophils Percent Auto 0.2 % (0.2-1.2); Hematocrit 41.4 % (37.0-47.0); Hemoglobin 13.7 g/dL (12.0-15.0); Immature Granulocyte Absolute 0.04 K/mm3 (0.00-0.031); Immature Granulocyte Percent A 0.8 % (0-0.5); Lymphocytes Absolute Auto 0.41 K/mm3 (0.9-3.2); Lymphocytes Percent Auto 8.2 % (18.3-44.2); Mean Corpuscular HGB Conc 33.1 g/dl (32-36); Mean Corpuscular Hemoglobin 28.4 pg (26-34); Mean Corpuscular Volume 85.7 fl (80-100); Mean Platelet Volume 8.6 fl (7.4-10.4); Monocytes Absolute Auto 0.3 K/mm3 (0.1-0.6); Monocytes Percent Auto 6.2 % (2.6-8.5); Neutrophils Absolute Auto 4.3 K/mm3 (1.3-6.7); Neutrophils Percent Auto 84.6 % (45.5-73.1); Platelet Count Result 163 k/mm3 (150-375); Red Blood Count 4.83 M/mm3 (4.2-5.4); Red Cell Distribution Width 12.5 % (11.5-14.5)
[2023-07-20 22:00] LABS: Alanine Aminotransferase 30 U/L (6-35); Albumin Level 3.7 g/dL (3.5-5.1); Alkaline Phosphatase 51 U/L (38-126); Anion Gap 8 mmol/L (4-12); Aspartate Amino Transferase 30 U/L (14-36); Bilirubin,Total 0.6 mg/dL (0.2-1.3); Blood Urea Nitrogen 9 mg/dL (7-17); Calcium 7.9 mg/dL (8.4-10.2); Carbon Dioxide 21 mmol/L (22-30); Chloride 108 mmol/L (98-107); Estimated CRCL calculation 67 ml/min; Estimated Glomerular Filt Rate > 60; Glucose 119 mg/dL (65-110); Lipase 42 U/L (23-300); Potassium 3.2 mmol/L (3.4-5.0); Sodium 137 mmol/L (137-145)
--- NOTE | 2023-07-20 22:00 | ED.NAVMDI ---
HPI - Nausea/Vomiting/Diarrhea General Chief complaint: Nausea/Vomiting/Diarrhea Stated complaint: N/V/D x 24 H History of Present Illness HPI Narrative: Patient presents with nausea, vomiting, diarrhea, for the past 24h; had just attending a graduation alliance party, no one else is sick. No respiratory symptoms, no fever, no abdominal pain. Related Data Home Medications Medication Instructions Recorded Confirmed pantoprazole 40 mg tablet,delayed 40 mg PO QAM 02/18/23 04/23/23 release Allergies Allergy/AdvReac Type Severity Reaction Status Date / Time No Known Allergies Allergy Verified 05/22/23 15:25 Review of Systems Review of Systems: All systems reviewed & are unremarkable except as noted in HPI and below PMFSH Past Medical History Medical History Atypical chest pain Shoulder pain, bilateral Surgical History Surgical History History of cholecystectomy History of lumpectomy of left breast History of tubal ligation Family History Family History Father Hypertension Family history of coronary artery disease Carcinoma of colon Mother Hypertension Carcinoma of colon Grandparent Diabetes mellitus Family history of malignant neoplasm of breast Sibling Family history of malignant neoplasm Other Family history of heart disease in male family member before age 55 Family history of malignant neoplasm of male breast Social History Social History (Updated 05/22/23 @ 15:26 by JODY Hope) Smoking status: Never smoker Second hand tobacco smoke exposure: No Alcohol intake: current Drinks per week: 3 Substance use: never Substance use type: does not use Do You Feel Safe in your Home?: Yes Lack of Transportation: No Lack of Food: Never True Current Housing: I Have Housing Concerned About Future Housing: No Difficulty Paying Gas/Electric Bills: No Difficulty Paying for Meds: No Currently Unemployed: No Education: Bachelor's Degree Difficulty w/ Childcare or Family Care: No Living arrangements: alone Additional living arrangements comments: 10/2021 Occupation/Education: retired Gender identity (if verbalized by the patient): Female Sexual Orientation (if Verbalized by the Patient): Straight or Heterosexual Spiritual care concerns: No Agree to blood products: Yes Exam Narrative: EXAMINATION OF ORGAN SYSTEMS/BODY AREAS: Constitutional: Vital signs per nursing GENERAL:[No acute distress, non-toxic appearing.] HEAD: Normal with no signs of head trauma. EYES: EOMI, conjunctiva normal ENT: Hearing grossly intact LUNGS: Nonlabored breathing. HEART: [Regular rate and rhythm] ABD: [Soft], [nontender to palpation] EXT: Normal range of motion SKIN: [No rashes or lesions.] NEURO: [Alert and oriented x 3. No gross focal sensory or strength deficits.] PSYCH: Normal affect Course Vital Signs Vital signs: Vital Signs Temperature 97.8 F 07/20/23 21:27 Pulse Rate 90 07/20/23 21:27 Respiratory Rate 20 07/20/23 21:27 Blood Pressure 130/79 07/20/23 21:27 Pulse Oximetry 98 07/20/23 21:27 Oxygen Delivery Room Air 07/20/23 21:27 Temperature 97.8 F 07/20/23 21:27 Pulse Rate 78 07/21/23 00:13 Respiratory Rate 17 07/21/23 00:13 Blood Pressure 147/80 H 07/21/23 00:13 Pulse Oximetry 98 07/21/23 00:13 Oxygen Delivery Room Air 07/20/23 21:27 MDM - Nausea/Vomiting/Diarrhea MDM Narrative Medical decision making narrative: patient presents with 1 day of nausea, vomiting, diarrhea, she has no abdominal pain, she is very well-appearing here, she had been given Zofran by EMS and upon arrival was already feeling better after sniffing alcohol swab. Without any abdominal tenderness have low concern for any acute surgical
[2023-07-20 22:04] LABS: Lactic Acid Reflex 2.3 mmol/L (0.7-2.0)
[2023-07-20] MEDS: LOPERAMIDE HCL 2 MG CAPSULE 4 MG PO (22:12)
[2023-07-20 22:15] VITALS: PULSE 78; RESP 19; O2SAT 99
[2023-07-20 22:44] VITALS: BP 117/84; PULSE 73; RESP 20; O2SAT 99
[2023-07-20] MEDS: POTASSIUM CHLORIDE 20 MEQ ER TABLET 40 MEQ PO (22:47)
[2023-07-21] MEDS: BISMUTH SUBSALICYLATE 262 MG CHEWABLE TABLET 524 MG PO (00:09)
[2023-07-21 00:13] VITALS: BP 147/80; PULSE 78; RESP 17; O2SAT 98
[2023-07-21 00:53] LABS: Reflex Lactic Acid Yes or No Add Lactic
== END 2023-07-21 00:14 | disposition home or self-care (01) ==
PROVIDERS: Emergency Provider Emergency Medicine; PCP Family Medicine
DX: R11.2 Nausea with vomiting, unspecified (principal); R19.7 Diarrhea, unspecified
CPT/HCPCS: 36415; 80053; 83605; 83690; 85025; 96360; 96361; 99283; A9270; J7120

== ENCOUNTER 2023-10-07 09:30 | Outpatient (CLI) | payer OTHER, SELFPAY ==
--- NOTE | 2023-10-07 09:39 | ECHO_ITS ---
Patient Info Name: Stephanie Mcarthur Age: 78 years : 1945 Gender: Female Ht: 64 in Wt: 143 lbs BSA: 1.72 m2 HR: 65 bpm BP: 164 / 91 mmHg Technical Quality: Fair Exam Date: 10/07/2023 9:55 AM Exam Location: Echo Lab Patient Status: Outpatient Admit Date: 10/07/2023 Staff Ordering Physician: Shlomo Paz MD Controlled Area Checker: Parish Holloway RDCS Attending Provider: Shlomo Paz MD Referring Physician: Jackson ACOSTA; Exam Type: CA echo doppler w bubble study Study Info Indications - transient alteration of awarness Complete two-dimensional, color flow and Doppler transthoracic echocardiogram is performed with agitated saline. Summary 1. Left ventricular chamber dimension is normal. 2. Left ventricular systolic function is normal, estimated at 60-65%. 3. The left ventricular diastolic function is grade I diastolic dysfunction. 4. E/e' 10 is mildly elevated. 5. There is mild aortic valve sclerosis. 6. There is trace aortic valve regurgitation. 7. There is trace mitral valve regurgitation. 8. There is mild tricuspid valve regurgitation. 9. No pulmonary hypertension, estimated pulmonary arterial systolic pressure is 26 mmHg. Left Ventricle E/e' 10 is mildly elevated. Left ventricular chamber dimension is normal. Left ventricular systolic function is normal, estimated at 60-65%. The left ventricular diastolic function is grade I diastolic dysfunction. Right Ventricle Right ventricular systolic function is normal and with normal TAPSE 2.5 cm. Right ventricular chamber dimension is normal. Left Atria Left atrial chamber dimension is normal. Right Atria Right atrial chamber dimension is normal. Atrial Septum Agitated saline injection with and without valsalva maneuver opacified right side cardiac chambers without shunt to left side cardiac chambers. Intact interatrial septum visualized by 2D and agitated saline imaging. Aortic Valve The aortic valve is trileaflet. There is mild aortic valve sclerosis. There is no aortic valve stenosis. There is trace aortic valve regurgitation. Pulmonic Valve There is no pulmonic regurgitation. Mitral Valve There is no mitral valve stenosis. There is trace mitral valve regurgitation. Tricuspid Valve There is mild tricuspid valve regurgitation. No pulmonary hypertension, estimated pulmonary arterial systolic pressure is 26 mmHg. Pericardium/Pleural There is no pericardial effusion. Inferior Vena Cava Normal inferior vena cava with >50% collapse upon inspiration consistent with normal right atrial pressure, 5 mmHg. Aorta The aortic root size at the sinus of Valsalva is normal. Left Ventricular Outflow Tract Name Value Normal LVOT 2D LVOT Diameter 1.9 cm LVOT Doppler LVOT Peak Gradient 6 mmHg LVOT Mean Gradient 4 mmHg LVOT VTI 30 cm LVOT VTI/AV VTI Ratio 1.0 LVOT Stroke Volume 82 ml LVOT CO 5.6 l/min LVOT CI 3.2 l/min/m2 Pulmonic Valve Name
== END 2023-10-07 09:31 | disposition home or self-care (01) ==
LOC: ANHCARD 09:33
PROVIDERS: PCP Family Medicine; Visit Provider Psychiatry & Neurology Neurology
DX: R40.4 Transient alteration of awareness (principal); I36.1 Nonrheumatic tricuspid (valve) insufficiency
CPT/HCPCS: 93306; 96375

== ENCOUNTER 2023-10-17 06:34 | Outpatient (CLI) | payer OTHER, SELFPAY ==
--- NOTE | 2023-10-20 14:04 | WPDNEUROLOGY ---
Neurology EEG Report General Information Date of Study: 10/17/23 TEST eeg DIAGNOSIS transient alteration of awareness. CONDITION OF RECORDING Awake drowsy and asleep EEG NUMBER [id number] CLINICAL HISTORY patient reports several months ago she had 1 episode of while watching TV, she lost about 20minutes. Does not believe she lost consciousness but just does not remember what happened EEG DESCRIPTION basic resting occipital frequency consists of low voltage 8 to 10 hertz per 2nd well-organized alpha with low-voltage 15 to 21 hertz per 2nd beta activity intermittently. During drowsiness low-voltage beta activity seen diffusely admixed with waxing and waning posterior alpha rhythm evolving into admixture of alpha beta and theta activity during drowsiness and development of the bilateral symmetrical sleep spindles during sleep activity. As mentioned before photic stimulation done produced normal drive. Hyperventilation not done. Non paroxysmal. Nonfocal. Nonlateralizing. IMPRESSION Normal record
== END 2023-10-17 06:35 | disposition home or self-care (01) ==
LOC: ANHNEURO 06:35
PROVIDERS: PCP Family Medicine; Visit Provider Psychiatry & Neurology Neurology
DX: R40.4 Transient alteration of awareness (principal); Z87.828 Personal history of other (healed) physical injury and trauma
CPT/HCPCS: 95816

== ENCOUNTER 2023-10-24 09:02 | Outpatient (CLI) | payer OTHER, SELFPAY ==
--- NOTE | ~2023-10-24 | MR_ITS ---
EXAMINATION: MR brain/brain stem wo con DATE: 10/24/2023 09:35 INDICATION: Personal history of other healed physical injury. TECHNIQUE: Magnetic resonance imaging (MRI) of the brain and brainstem was performed without intraven ous contrast. COMPARISON: Head CT 04/12/2023 FINDINGS: There is no intracranial hemorrhage, acute infarction, or abnormal intracranial mass lesion . The ventricles are normal in size. The paranasal sinuses are clear. There is a trace right mastoid effusion. The orbits are normal. IMPRESSION: 1. Normal brain. Reviewed, dictated and finalized at location A. IMPRESSION: 1. Normal brain.
== END 2023-10-24 09:03 | disposition home or self-care (01) ==
PROVIDERS: PCP Family Medicine; Visit Provider Psychiatry & Neurology Neurology
DX: R40.4 Transient alteration of awareness (principal); Z87.828 Personal history of other (healed) physical injury and trauma
CPT/HCPCS: 70551

== ENCOUNTER 2024-05-04 08:53 | Outpatient (CLI) | payer OTHER, SELFPAY ==
--- NOTE | ~2024-05-04 | DEXA_ITS ---
Bone Density Report Name: KRIS DIA Age: 78 Sex: Female Ethnicity: White Date of : 1945 Indication: osteopenia; height loss; prior fracture; cancer; Referring Provider: NISREEN URIBE Study: Bone densitometry was performed. Exam Date: May 04, 2024 Accession number: [id number] Bone Density: Region BMD T-score Z-score Classification AP Spine(L1-L4) 0.922 -1.1 1.3 Osteopenia Femoral Neck (Left) 0.633 -1.9 0.2 Osteopenia Total Hip (Left) 0.718 -1.8 0.0 Osteopenia Femoral Neck (Right) 0.581 -2.4 -0.3 Osteopenia Total Hip (Right) 0.692 -2.0 -0.2 Osteopenia Total Hip Mean 0.705 -1.9 -0.1 Osteopenia World Health Organization criteria for BMD impression classify patients as: Normal (T-score at or above -1.0), Osteopenia (T-score between -1.0 and -2.5), or Osteoporosis (T-score at or below -2.5). 10-year Fracture Risk(1): Major Osteoporotic Fracture 24% Hip Fracture 6.9% Reported Risk Factors: [place] (), Neck BMD=0.581, BMI=25.8, previous fracture (1) FRAX(R) Version 3.08. Fracture probability calculated for an untreated patient. Fracture probability may be lower if the patient has received treatment. Previous Exams: Region Exam Age BMD T-score BMD Change BMD Change Date g/cm2 vs Baseline vs Previous AP Spine (L1-L4) 05/04/2024 78 0.922 -1.1 0.104 (12.7%)* 0.083 (9.9%)* 05/02/2022 76 0.839 -1.9 0.020 (2.5%) 0.020 (2.5%) 03/17/2020 74 0.818 -2.1 Total Hip(Left) 05/04/2024 78 0.718 -1.8 -0.015 (-2.1%) 0.027 (3.9%) 05/02/2022 76 0.691 -2.1 -0.042 (-5.7%) -0.042 (-5.7%) 03/17/2020 74 0.733 -1.7 Total Hip(Right) 05/04/2024 78 0.692 -2.0 0.030 (4.5%)* 0.009 (1.4%) 05/02/2022 76 0.683 -2.1 0.021 (3.1%) 0.021 (3.1%) 03/17/2020 74 0.662 -2.3 *Denotes significance at 95% confidence level, LSC for AP Spine = 0.022 g/cm2, LSC for Total Hip = 0.027 g/cm2 Clinical Information Provided by Patient: Has had a low trauma fracture Has used the following medications: Vitamin D, Calcium Has the following medical conditions: Cancer Patient maximum height was 64 Menopause Age: 53 Onset of menses at age 14 Number of children 1 Impression: The patient has low bone mass, based on the Right Femoral Neck T-score. The patient has an estimated ten-year risk of hip fracture of 6.9% and an estimated ten-year risk of major fracture of 24%, based on the WHO FRAX algorithm. The patient has risk factors, including: previous fracture. No significant bone loss was observed. Discussion: BONE DENSITY IS LOW AT ONE OR MORE SKELETAL SITES. THE PATIENT'S BMD AND CLINICAL RISK FACTORS CONTRIBUTE TO THIS PATIENT'S HIGH RISK OF FRACTURE. This patient's lowest T-score is low at one or more skeletal sites. It meets the World Health Organization's (WHO) criteria for ?low bone mass? (T-score between -1.0 and -2.5). The patient's 10-year risk of hip fracture and 10 year risk of a major osteoporotic fracture as calculated by FRAX exceeds the threshold where pharmacological therapy is recommended by the National Osteoporosis Foundation (NOF). However, all treatment decisions require clinical judgment and consideration of individual patient factors, including patient preferences, comorbidities, previous drug use, risk factors not captured in the FRAX model (e.g., frailty, falls, vitamin D deficiency, increased bone turnover, interval significant decline in bone density) and possible under or overestimation of fracture risk by FRAX. The patient should follow a healthful lifestyle (good nutrition with adequate calcium and vitamin D, and appropriate weight-bearing exercise). Follow-Up: Consider a repeat BMD and Vertebral Fracture Assessment (VFA) exam in 2 years or sooner if medically necessary, to reassess this patient's status. Reported by: KENAN on 05/04/2024 9:26:00 AM. Reviewed, dictated and finalized at location AMily FISHMAN
--- OUTSIDE RECORDS SUMMARY | 2024-05-04 09:34 | XMS_ITS | CONTINUITY OF CARE DOCUMENT ---
Author Name yoly frederick Address Unknown Organization [facility] Address [id number] [place] [address] [address] [place] [address] Phone [phone] Care Team Providers Care Ring Making Machine Operator Name Role Phone FABIAN JEFFERY, PHYLLIS F Unavailable [phone] FABIAN JEFFERY, PHYLLIS F Unavailable [phone] INSURANCE PROVIDERS Payer name Policy type / Coverage type [place] red constitution party ID [employer] [facility] Other [id number]
--- OUTSIDE RECORDS SUMMARY | 2024-05-04 09:35 | XMS_ITS | Clinical Summary ---
Author Organization [facility] Address [address] [place] [address] Care Team Providers Care Information Support Project Manager Name Role Phone Timothy Sevilla DO Primary Care Provider [phone] Allergies Active Allergy Reactions Criticality Noted Date Comments Mercury Unknown 06/20/2010 Morphine Unknown 07/18/2011 Medications ALPRAZolam (XANAX) 0.25 mg tablet 1 09/22/19 18 Active chlorhexidine (PERIDEX) 0.12 % solution USE 15ML TO RINSE FOR 2 MINUTES EVERY 12 HOURS 6 10/09/19 19 Active ibandronate (BONIVA) 150 mg tablet TAKE 1 TABLET BY MOUTH MONTHLY 12/05/19 23 Active escitalopram (LEXAPRO) 5 mg tablet escitalopram 5 mg tablet 025 Discontinued Active Problems Problem Noted Date Diagnosed Date History of breast cancer 10/22/2017 Encounters Date Type Department Care Team Description 04/16/2024 Results Follow-Up [facility] Surgery [address] [place] [address] Floor 8 [place] [address] Chio Wilhelm NP 04/15/2024 9:00 AM FINANCIAL SALES ASSISTANT - 04/15/2024 11:59 PM FINANCIAL SALES ASSISTANT Hospital Encounter [facility] - Breast Imaging [address] [facility] Floor 8 [place] [address] History of breast cancer Discharge Disposition: Discharge to home or self care 04/15/2024 8:45 AM FINANCIAL SALES ASSISTANT Office Visit [facility] Surgery [address] [facility] [address] [place] [phone] Chio Wilhelm NP Ductal carcinoma in situ (DCIS) of left breast (Primary Dx); History of breast cancer; History of partial mastectomy of left breast; Encounter for screening mammogram for malignant neoplasm of breast 03/23/2024 Telephone [facility] Surgery [address] [facility] [address] [place] [address] Chio Wilhelm NP Scheduling Appointments from Last 3 Months Immunizations Immunization Administration Dates Next Due Influenza, Quadrivalent, Hig h Dose, Preservative Free, Intrr 10/29/2019 Influenza, Trivalent, High D ose, Split, Preservative Free, Intramuscular 10/28/2018,11/07/2017,11/21/2016,11/06,11/09/2014,10/23/2012 Pneumococcal Polysaccharide PPV23 09/11/2017 ZOSTER Recombinant 04/29/2018,11/07/2017, 018 Surgical History Surgery Date Site/Laterality Comments CHOLECYSTECTOMY 02/12/2000 - 02/10/2001 Family History Medical History Relation Name Comments Breast cancer Father's Sister Breast cancer Maternal Grandmother Colon cancer Mother Colon adenocarc inoma - (Added by TW Conv) Relation Name Status Comments Father's Sister Maternal Grandmother Mother Social History Tobacco Use Types Packs/Day Years Used Date Smoking Tobacco: Never Smokeless Tobacco: Never Tobacco Cessation:Counseling Given: Not Answered Alcohol Use Standard Drinks/Week Comments Yes 0 (1 standard drink = 0.6 oz pur e alcohol) occasionally Comments No Sex and Gender Information Value Date Recorded Sex Assigned at Not on file Legal Sex Female 2:52 AM FINANCIAL SALES ASSISTANT Gender Identity Female 01/10/2022 6:47 AM FINANCIAL SALES ASSISTANT Sexual Orientation Straight 01/10/2022 6: 47 AM FINANCIAL SALES ASSISTANT Obstetrics History Last Filed Vital Signs Vital Sign Reading Time Taken Comments Blood Pressure 150/80 02/09/2023 10:52 AM FINANCIAL SALES ASSISTANT Pulse 88 02/09/2023 10:52 AM FINANCIAL SALES ASSISTANT Temperature 36.4 C (97.6 F) 02/09/2023 10:52 AM FINANCIAL SALES ASSISTANT Respiratory Rate - - Oxygen Saturation 98% 02/09/2023 10:52 AM FINANCIAL SALES ASSISTANT Inhaled Oxygen Concentration - - Weight 65.8 kg (145 lb) 04/15/2024 8:38 AM FINANCIAL SALES ASSISTANT Height 157.5 cm (5' 2 ) 04/15/2024 8:38 AM FINANCIAL SALES ASSISTANT Body Mass Index 26.52 04/15/2024 8:38 AM FINANCIAL SALES ASSISTANT Plan of Treatment Health Maintenance Due Date Last Done Comments Depression Screening 1945 Fall Risk Assessment 1945 Hepatitis C Screening 1945 DTaP/Tdap/Td Vaccine (1 - Tdap) 10/04/1958 Hepatitis B Screening 10/04/1965 Well Visit 65+ 10/04/2012 Osteoporosis Screening-Bone Density Scan 03/15/2017 03/15/2015, 07/24/2013, 02/15/2012 Pneumococcal vaccine 65+ (2 of 2 - PCV) 09/11/2018 09/11/2017 Influenza Vaccine (#1) 2023 , 10/28/2018, 11/07/2017, Additional history exists Zoster Vaccine Completed 04/29/2018, 10/13, 11/06/2017 Breast Cancer Screening-Mammogram Discontinued 04/15/2024, 03/20/2023, 01/17/2022, Additional history exists Procedures Procedure Name Priority Date/Time Associated Diagnosis Comments SCREENING MAMMOGRAM BILATERAL W ZACHARIAH Schedule Routine, Read Routine (OP Routine) 04/15/2024 10:10 AM FINANCIAL SALES ASSISTANT History of breast cancer BONE MINERAL DENSITY 03/15/2015 from Last 3 Months or Most Recently Relevant to Health Maintenance Results * Screening Mammogram Bilateral W Zachariah (04/15/2024 10:10 AM FINANCIAL SALES ASSISTANT) Anatomical Region Laterality Modality Breast Bilateral Mammography Narrative 04/15/2024 4:34 PM FINANCIAL SALES ASSISTANT Mammogram Technique: Bilateral Digital Breast Tomosynthesis, Bilateral C-view 2D Screening mammogram. Views obtained: bilateral craniocaudal and bilateral mediolateral oblique. Computer Aided Detection was performed. Mammogram Findings: The present examination has been compared to prior imaging studies performed at [facility] on 01/03/2021, 01/17/2022 and 03/20/2023. The breasts are heterogeneously dense, which may obscure small masses. There is no suspicious abnormality in either breast. There are left breast conservation therapy changes. Impression: There is no mammographic evidence of malignancy. There are left breast conservation therapy changes. Consider supplemental screening with breast MRI for this patient with personal history of breast cancer and dense breasts. Annual screening mammography is recommended. If supplemental screening is desired, breast MRI would be recommended in this patient with heterogeneously dense breasts. OVERALL FINAL ASSESSMENT: BI-RADS CATEGORY 1: Negative. Procedure Note Citlali Rucker MD - 04/15/2024 Mammogram Technique: Bilateral Digital Breast Tomosynthesis, Bilateral C-view 2D Screening mammogram. Views obtained: bilateral craniocaudal and bilateral mediolateral oblique. Computer Aided Detection was performed. Mammogram Findings: The present examination has been compared to prior imaging studies performed at [facility] on 01/03/2021, 01/17/2022 and 03/20/2023. The breasts are heterogeneously dense, which may obscure small masses. There is no suspicious abnormality in either breast. There are left breast conservation therapy changes. Impression: There is no mammographic evidence of malignancy. There are left breast conservation therapy changes. Considersupplemental screening with breast MRI for this patient with personal history ofbreast cancer and dense breasts. Annual screening mammography is recommended. If supplemental screeningis desired, breast MRI would be recommended in this patient with heterogeneously dense breasts. OVERALL FINAL ASSESSMENT: BI-RADS CATEGORY 1: Negative. Chio Wilhelm NP IMG MAMMO PROCEDURES Final Result * BONE MINERAL DENSITY (03/15/2015) Anatomical Region Laterality Modality Radiographic Kaitlin ging Narrative 03/15/2015 Ordered by an unspecified provider. Historical Provider MD DESAI DXA PROCEDURES Final Result from Last 3 Months or Most Recently Relevant to Health [place] [address] [place] [address] [facility] [place] [address] [place] [address] HEALTHCARE Care Teams Information Support Project Manager Relationship Specialty Start Date End Date Timothy Sevilla DO PCP - General Internal Medicine 03/13/24
--- OUTSIDE RECORDS SUMMARY | 2024-05-04 09:35 | XMS_ITS | Referral Summary ---
Author Organization [facility] Address [address] [place] [address] Care Team Providers Care Belt Lacer Name Role Phone Timothy Sevilla DO Primary Care Provider [phone]- [phone] Encounters Date Type Department Care Team Description 04/16/2024 Results Follow-Up [facility] Surgery [address] [place] [phone] Chio Wilhelm NP 04/15/2024 9:00 AM SOUVENIR AND NOVELTY MAKER - 04/15/2024 11:59 PM SOUVENIR AND NOVELTY MAKER Hospital Encounter [facility] - Breast Imaging [address] [place] [address] History of breast cancer Discharge Disposition: Discharge to home or self care 04/15/2024 8:45 AM SOUVENIR AND NOVELTY MAKER Office Visit [facility] Surgery [address] [place] [phone] Chio Wilhelm NP Ductal carcinoma in situ (DCIS) of left breast (Primary Dx); History of breast cancer; History of partial mastectomy of left breast; Encounter for screening mammogram for malignant neoplasm of breast 03/23/2024 Telephone [facility] Surgery [address] [place] [phone] Chio Wilhelm NP Scheduling Appointments from Last 3 Months Allergies Active Allergy Reactions Criticality Noted Date [...] Diagnosed Date History of breast cancer 10/22/2017 Immunizations Immunization Administration Dates Next Due Influenza, Quadrivalent, Hig h Dose, Preservative Free, Intrr 10/29/2019 Influenza, Trivalent, High D ose, Split, Preservative Free, Intramuscular 10/28/2018,11/07/2017,11/21/2016,11/06,11/09/2014,10/23/2012 Pneumococcal Polysaccharide PPV23 09/11/2017 ZOSTER Recombinant 04/29/2018,11/07/2017, 018 Social History Tobacco Use Types Packs/Day Years Used Date Smoking Tobacco: Never Smokeless Tobacco: Never Tobacco Cessation:Counseling Given: Not Answered Alcohol Use Standard Drinks/Week Comments Yes 0 (1 standard drink = 0.6 oz pur e alcohol) occasionally Comments No Sex and Gender Information Value Date Recorded Sex Assigned at Not on file Legal Sex Female 2:52 AM SOUVENIR AND NOVELTY MAKER Gender Identity Female 01/10/2022 6:47 AM SOUVENIR AND NOVELTY MAKER Sexual Orientation Straight 01/10/2022 6: 47 AM SOUVENIR AND NOVELTY MAKER Last Filed Vital Signs Vital Sign Reading Time Taken Comments Blood Pressure 150/80 02/09/2023 10:52 AM SOUVENIR AND NOVELTY MAKER Pulse 88 02/09/2023 10:52 AM SOUVENIR AND NOVELTY MAKER Temperature 36.4 C (97.6 F) 02/09/2023 10:52 AM SOUVENIR AND NOVELTY MAKER Respiratory Rate - - Oxygen Saturation 98% 02/09/2023 10:52 AM SOUVENIR AND NOVELTY MAKER Inhaled Oxygen Concentration - - Weight 65.8 kg (145 lb) 04/15/2024 8:38 AM SOUVENIR AND NOVELTY MAKER Height 157.5 cm (5' 2 ) 04/15/2024 8:38 AM SOUVENIR AND NOVELTY MAKER Body Mass Index 26.52 04/15/2024 8:38 AM SOUVENIR AND NOVELTY MAKER Plan of Treatment Not on file Procedures Procedure Name Priority Date/Time Associated Diagnosis Comments SCREENING MAMMOGRAM BILATERAL W ZACHARIAH Schedule Routine, Read Routine (OP Routine) 04/15/2024 10:10 AM SOUVENIR AND NOVELTY MAKER History of breast cancer BONE MINERAL DENSITY 03/15/2015 from Last 3 Months or Most Recently Relevant to Health Maintenance Results * Screening Mammogram Bilateral W Zachariah (04/15/2024 10:10 AM SOUVENIR AND NOVELTY MAKER) Anatomical Region Laterality Modality Breast Bilateral Mammography Narrative 04/15/2024 4:34 PM SOUVENIR AND NOVELTY MAKER Mammogram Technique: Bilateral Digital Breast Tomosynthesis, Bilateral C-view 2D Screening mammogram. Views obtained: bilateral craniocaudal and bilateral mediolateral oblique. Computer Aided Detection was performed. Mammogram Findings: The present examination has been compared to prior imaging studies performed at [facility] on 01/03/2021, 01/17/2022 and 03/20/2023. The breasts [...] compared to prior imaging studies performed at [facility] on 01/03/2021, 01/17/2022 and 03/20/2023. The breasts [...] Ordered by an unspecified provider. Historical Provider [employer] DXA PROCEDURES Final Result from Last 3 Months or Most Recently Relevant to Health Maintenance Insurance [facility] [place] [address] [facility] Care Teams Belt Lacer Relationship Specialty Start Date End Date Timothy Sevilla DO PCP - General Internal Medicine 03/13/24
--- OUTSIDE RECORDS SUMMARY | 2024-05-04 09:35 | XMS_ITS | Encounter Summary ---
Author Organization [facility] Address [address] [facility] [address] [place] [address] Phone Care Team Providers Care Study Coordinator Name Role Phone Timothy Sevilla DO Primary Care Provider +1- [phone] Encounter Details Date Type Department Care Team (Late st Contact Info) Description 04/16/2024 Results Follow-Up [facility] Surgery [address] [facility] Floor 8 [place] [phone] Chio Wilhelm NP [address] [facility] [id number] [place] [address] Social History Tobacco Use Types Packs/Day Years Used Date Smoking Tobacco: Never Smokeless Tobacco: Never Alcohol Use Standard Drinks/Week Comments Yes 0 (1 standard drink = 0.6 oz pur e alcohol) occasionally Comments No Sex and Gender Information Value Date Recorded Sex Assigned at Not on file Legal Sex Female 2:52 AM ACTIVITIES VOLUNTEER Gender Identity Female 01/10/2022 6:47 AM ACTIVITIES VOLUNTEER Sexual Orientation Straight 01/10/2022 6: 47 AM ACTIVITIES VOLUNTEER documented as of this encounter Plan of Treatment Not on file documented as of this encounter Visit Diagnoses Not on filedocumented in this encounter Care Teams Study Coordinator Relationship Specialty Start Date End Date Timothy Sevilla DO PCP - General Internal Medicine 03/13/24 documented as of this encounter
== END 2024-05-04 08:54 | disposition home or self-care (01) ==
LOC: ANHIMG 08:54
PROVIDERS: PCP Nurse Practitioner; Visit Provider Obstetrics & Gynecology
DX: M85.89 Other specified disorders of bone density and structure, multiple sites (principal); Z78.0 Asymptomatic menopausal state
CPT/HCPCS: 77080

== ENCOUNTER 2024-06-01 08:16 | Outpatient (CLI) | payer OTHER, SELFPAY ==
--- OUTSIDE RECORDS SUMMARY | 2024-06-01 08:47 | XMS_ITS | Referral Summary ---
Author Organization [facility] Address [address] [place] [address] Care Team Providers Care Bar Tacker Name Role Phone Timothy Sevilla DO Primary Care Provider +1- [phone] Encounters Date Type Department Care Team Description 04/16/2024 Results Follow-Up [facility] Surgery [address] [place] [phone] Chio Wilhelm NP 04/15/2024 9:00 AM TILE SORTER - 04/15/2024 11:59 PM TILE SORTER [facility] [address] [place] [id number] History of breast cancer Discharge Disposition: Discharge to home or self care 04/15/2024 8:45 AM TILE SORTER Office Visit [facility] Surgery [address] [place] [phone] Chio Wilhelm NP Ductal carcinoma in situ (DCIS) of left breast (Primary Dx); History of breast cancer; History of partial mastectomy of left breast; Encounter for screening mammogram for malignant neoplasm of breast 03/23/2024 Telephone [facility] Surgery [address] [place] [phone] Chio Wilhelm NP Scheduling Appointments from Last 3 Months Allergies Active Allergy Reactions Criticality Noted Date Comments Mercury Unknown 06/20/2010 Morphine Unknown 07/18/2011 Medications ALPRAZolam (XANAX) 0.25 mg tablet 1 09/21/2017 Active chlorhexidine (PERIDEX) 0.12 % solution USE 15ML TO RINSE FOR 2 MINUTES EVERY 12 HOURS 6 10/08/2018 Active ibandronate (BONIVA) 150 mg tablet TAKE 1 TABLET BY MOUTH MONTHLY 12/04/2022 Active Active Problems Problem Noted Date Diagnosed Date [...] on file Legal Sex Female 2:52 AM TILE SORTER Gender Identity Female 01/10/2022 6:47 AM TILE SORTER Sexual Orientation Straight 01/10/2022 6: 47 AM TILE SORTER Last Filed Vital Signs Vital Sign Reading Time Taken Comments Blood Pressure 150/80 02/09/2023 10:52 AM TILE SORTER Pulse 88 02/09/2023 10:52 AM TILE SORTER Temperature 36.4 C (97.6 F) 02/09/2023 10:52 AM TILE SORTER Respiratory Rate - - Oxygen Saturation 98% 02/09/2023 10:52 AM TILE SORTER Inhaled Oxygen Concentration - - Weight 65.8 kg (145 lb) 04/15/2024 8:38 AM TILE SORTER Height 157.5 cm (5' 2 ) 04/15/2024 8:38 AM TILE SORTER Body Mass Index 26.52 04/15/2024 8:38 AM TILE SORTER Plan of Treatment Not on file Procedures Procedure Name Priority Date/Time Associated Diagnosis Comments SCREENING MAMMOGRAM BILATERAL W ZACHARIAH Schedule Routine, Read Routine (OP Routine) 04/15/2024 10:10 AM TILE SORTER History of breast cancer BONE MINERAL DENSITY 03/15/2015 from Last 3 Months or Most Recently Relevant to Health Maintenance Results * Screening Mammogram Bilateral W Zachariah (04/15/2024 10:10 AM TILE SORTER) Anatomical Region Laterality Modality Breast Bilateral Mammography Narrative 04/15/2024 4:34 PM TILE SORTER Mammogram Technique: Bilateral Digital Breast Tomosynthesis, Bilateral C-view 2D Screening mammogram. Views obtained: bilateral craniocaudal and bilateral mediolateral oblique. Computer Aided Detection was performed. Mammogram Findings: The present examination has been compared to prior imaging studies performed at [facility] on 01/03/2021, 01/17/2022 and 03/20/2023. The breasts [...] compared to prior imaging studies performed at [facility] on 01/03/2021, 01/17/2022 and 03/20/2023. The breasts [...] Most Recently Relevant [place] [address] [facility] Member Subscriber Plan / Payer ( fective 2017-Present) Name:Kris Dia Relation to Subscriber:Self Name:Kris Dia Payer ID:[id number] (NAIC) Type:MEDICARE RISK OTHER Address: [place] [id number] [place] [address] [facility] Care Teams Bar Tacker Relationship Specialty Start Date End Date Timothy Sveilla DO PCP - General Internal Medicine 03/13/24
--- OUTSIDE RECORDS SUMMARY | 2024-06-01 08:47 | XMS_ITS | Encounter Summary ---
Author Organization [facility] Address [address] [facility] [address] [place] [address] Phone Care Team Providers Care Public Relations Account Executive Name Role Phone Timothy Sevilla DO Primary Care Provider +1- [phone] Encounter Details Date Type Department Care Team (Late st Contact Info) Description 04/16/2024 Results Follow-Up [facility] Surgery [address] [facility] Floor 8 [place] [phone] Chio Wilhelm NP [address] [facility] [id number] [place] [address] Social History Tobacco Use Types Packs/Day Years Used Date Smoking Tobacco: Never Smokeless Tobacco: Never Alcohol Use Standard Drinks/Week Comments Yes 0 (1 standard drink = 0.6 oz pur e alcohol) occasionally Comments No Sex and Gender Information Value Date Recorded Sex Assigned at Not on file Legal Sex Female 2:52 AM FRONT DESK WORKER Gender Identity Female 01/10/2022 6:47 AM FRONT DESK WORKER Sexual Orientation Straight 01/10/2022 6: 47 AM FRONT DESK WORKER documented as of this encounter Plan of Treatment Not on file documented as of this encounter Visit Diagnoses Not on filedocumented in this encounter Care Teams Public Relations Account Executive Relationship Specialty Start Date End Date Timothy Sevilla DO PCP - General Internal Medicine 03/13/24 documented as of this encounter
--- OUTSIDE RECORDS SUMMARY | 2024-06-01 08:47 | XMS_ITS | CONTINUITY OF CARE DOCUMENT ---
Author Name yoly frederick Address Unknown Organization [facility] Address [address] [place] [address] [address] [place] [address] Phone [phone] Care Team Providers Care Rehabilitation Aide/Scheduler Name Role Phone FABIAN JEFFERY, PHYLLIS F Unavailable [phone] FABIAN JEFFERY, PHYLLIS F Unavailable INSURANCE PROVIDERS Payer name Policy type / Coverage type Gardiner red green party ID [employer]ET[employer] [facility] Other [id number]
--- OUTSIDE RECORDS SUMMARY | 2024-06-01 08:48 | XMS_ITS | Clinical Summary ---
Author Organization [facility] Address [address] [place] [address] Care Team Providers Care Surveillance Sensor Officer Name Role Phone Timothy Sevilla DO Primary Care Provider +1- [phone] Allergies Active Allergy Reactions Criticality Noted Date [...] Department Care Team Description 04/16/2024 Results Follow-Up [facility] Surgery [address] [place] [phone] Chio Wilhelm NP 04/15/2024 9:00 AM JOB DEVELOPER FOR DEAF ADULTS - 04/15/2024 11:59 PM JOB DEVELOPER FOR DEAF ADULTS Hospital Encounter [facility] [place] [facility] Breast Imaging [address] [place] [address] [address] [place] [address] History of breast cancer Discharge Disposition: Discharge to home or self care 04/15/2024 8:45 AM JOB DEVELOPER FOR [employer]AF ADULTS Office Visit [facility] Surgery [address] [place] [address] [address] [place] [address] Chio Wilhelm NP Ductal carcinoma in situ (DCIS) of left breast (Primary Dx); History of breast cancer; History of partial mastectomy of left breast; Encounter for screening mammogram for malignant neoplasm of breast 03/23/2024 Telephone [facility] Surgery [facility] Floor 8 [place] [address] Chio Wilhelm NP Scheduling Appointments [...] on file Legal Sex Female 2:52 AM JOB DEVELOPER FOR DEAF ADULTS Gender Identity Female 01/10/2022 6:47 AM JOB DEVELOPER FOR [employer]AF ADULTS Sexual Orientation Straight 01/10/2022 6: 47 AM JOB DEVELOPER FOR [employer]AF ADULTS Obstetrics History Last Filed Vital Signs Vital Sign Reading Time Taken Comments Blood Pressure 150/80 02/09/2023 10:52 AM JOB DEVELOPER FOR [employer] ADULTS Pulse 88 02/09/2023 10:52 AM JOB DEVELOPER FOR [employer]AF ADULTS Temperature 36.4 C (97.6 F) 02/09/2023 10:52 AM JOB DEVELOPER FOR [employer]AF ADULTS Respiratory Rate - - Oxygen Saturation 98% 02/09/2023 10:52 AM JOB DEVELOPER FOR [employer]AF ADULTS Inhaled Oxygen Concentration - - Weight 65.8 kg (145 lb) 04/15/2024 8:38 AM JOB DEVELOPER FOR DEAF ADULTS Height 157.5 cm (5' 2 ) 04/15/2024 8:38 AM JOB DEVELOPER FOR DEAF ADULTS Body Mass Index 26.52 04/15/2024 8:38 AM JOB DEVELOPER FOR [employer]AF ADULTS Plan of Treatment Health Maintenance Due Date [...] Read Routine (OP Routine) 04/15/2024 10:10 AM JOB DEVELOPER FOR [employer]AF ADULTS History of breast cancer BONE MINERAL DENSITY 03/15/2015 from Last 3 Months or Most Recently Relevant to Health Maintenance Results * Screening Mammogram Bilateral W Zachariah (04/15/2024 10:10 AM JOB DEVELOPER FOR DEAF ADULTS) Anatomical Region Laterality Modality Breast Bilateral Mammography Narrative 04/15/2024 4:34 PM JOB DEVELOPER FOR [employer] ADULTS Mammogram Technique: Bilateral Digital Breast Tomosynthesis, Bilateral C-view 2D Screening mammogram. Views obtained: bilateral craniocaudal and bilateral mediolateral oblique. Computer Aided Detection was performed. Mammogram Findings: The present examination has been compared to prior imaging studies performed at [facility] on 01/03/2021, 01/17/2022 and 03/20/2023. [...] compared to prior imaging studies performed at [facility] on 01/03/2021, 01/17/2022 and 03/20/2023. [...] Narrative 03/15/2015 Ordered by an unspecified provider. [facility] Provider [employer] DXA PROCEDURES Final Result from Last 3 Months or Most Recently Relevant to Health [place] [address] [facility] [place] [address] [place] [address] [place] [address] [place] [address] HEALTHCARE Care Teams Surveillance Sensor Officer Relationship Specialty Start Date End Date Timothy Sevilla DO PCP - General Internal Medicine 03/13/24
[2024-06-01 13:45] LABS: Basophils Absolute Auto 0.1 K/mm3 (0.0-0.1); Eosinophils Percent Auto 0.8 % (0-4.4); Hematocrit 44.7 % (37.0-47.0); Hemoglobin 14.3 g/dL (12.0-15.0); Immature Granulocyte Absolute 0.01 K/mm3 (0.00-0.031); Immature Granulocyte Percent A 0.2 % (0-0.5); Lymphocytes Absolute Auto 1.52 K/mm3 (0.9-3.2); Lymphocytes Percent Auto 31.3 % (18.3-44.2); Mean Corpuscular Hemoglobin 28.2 pg (26-34); Mean Corpuscular Volume 88.2 fl (80-100); Mean Platelet Volume 9.3 fl (7.4-10.4); Monocytes Absolute Auto 0.3 K/mm3 (0.1-0.6); Monocytes Percent Auto 6.6 % (2.6-8.5); Neutrophils Absolute Auto 2.9 K/mm3 (1.3-6.7); Neutrophils Percent Auto 60.1 % (45.5-73.1); Platelet Count Result 224 k/mm3 (150-375); Red Blood Count 5.07 M/mm3 (4.2-5.4); Red Cell Distribution Width 12.6 % (11.5-14.5); White Blood Count 4.9 K/mm3 (4.5-10.0)
[2024-06-01 14:00] LABS: Alanine Aminotransferase 29 U/L (6-35); Albumin Level 4.2 g/dL (3.5-5.1); Alkaline Phosphatase 44 U/L (38-126); Anion Gap 7 mmol/L (4-12); Aspartate Amino Transferase 39 U/L (14-36); Bilirubin,Total 0.5 mg/dL (0.2-1.3); Blood Urea Nitrogen 23 mg/dL (7-17); Carbon Dioxide 30 mmol/L (22-30); Chloride 104 mmol/L (98-107); Cholesterol 205 mg/dL (0-200); Estimated Glomerular Filt Rate > 60; Glucose 73 mg/dL (65-110); HDL Direct 73 mg/dL; Potassium 4.6 mmol/L (3.4-5.0); Sodium 141 mmol/L (137-145); Triglycerides 66 mg/dL (<150)
[2024-06-01 14:11] LABS: LDL Cholesterol Direct 98 mg/dL
[2024-06-01 14:21] LABS: Vitamin D 25 Hydroxy 39.3 ng/mL
[2024-06-02 21:33] LABS: Amphetamines NEGATIVE ng/mL (<500); Barbiturates NEGATIVE ng/mL (<300); Benzodiazepines POSITIVE ng/mL (<100); Cocaine Metabolite NEGATIVE ng/mL (<150); Marijuana Metabolite NEGATIVE ng/mL (<20); Methadone Metabolite NEGATIVE ng/mL (<100); Opiates NEGATIVE ng/mL (<100); Oxidant NEGATIVE mcg/mL (<200); PCP NEGATIVE ng/mL (<25); pH 7.1 (4.5-9.0)
== END 2024-06-01 08:17 | disposition home or self-care (01) ==
LOC: ANHGOSHLAB 08:18
PROVIDERS: PCP Nurse Practitioner; Visit Provider Nurse Practitioner
DX: F41.9 Anxiety disorder, unspecified (principal); M81.0 Age-related osteoporosis without current pathological fracture; K21.9 Gastro-esophageal reflux disease without esophagitis; E55.9 Vitamin D deficiency, unspecified; Z79.899 Other long term (current) drug therapy; Z13.220 Encounter for screening for lipoid disorders
CPT/HCPCS: 36415; 80053; 80061; 80307; 82306; 84443; 85025

== ENCOUNTER 2024-12-10 08:08 | Emergency (ER) | payer OTHER, SELFPAY ==
[2024-12-10 08:19] VITALS: BP 115/76; PULSE 86; RESP 16; TEMP 36.4; O2SAT 99
--- NOTE | 2024-12-10 08:30 | ED.URI ---
HPI - URI/Sore Throat General Chief Complaint: Upper Respiratory Infection Stated Complaint: Upper Respiratory Symptoms Time Seen by Provider: 12/10/24 08:18 Source: patient and RN notes reviewed Mode of arrival: ambulatory Limitations: no limitations History of Present Illness HPI Narrative: 79-year-old female presents today complaining of nausea, congestion, sinus pressure, cough x4 days. Initially she had some vomiting and diarrhea as well. Vomiting was only on day of onset of symptoms. Diarrhea lasted for 2 days before resolving. Denies any residual abdominal pain or fever or shortness of breath. She has been taking DayQuil and Tylenol with improvement of symptoms. Related Data Home Medications ?Medication ?Instructions ?Recorded ?Confirmed ?Last Taken ?Type calcium 315 mg (as 1 tablet PO DAILY 09/24/23 12/10/24 Unknown History citrate)-vitamin D3 6.25 mcg (250 unit) tablet Allergies Allergy/AdvReac Type Severity Reaction Status Date / Time citalopram Allergy Mild Anxiety Verified 12/10/24 08:19 [facility] Past Medical History Medical History Osteoporosis Anxiety and depression Atypical chest pain Shoulder pain, bilateral Surgical History Surgical History History of surgery on lower extremity History of tubal ligation History of lumpectomy of left breast History of cholecystectomy Family History Family History Father Hypertension Family history of coronary artery disease Carcinoma of colon Mother Hypertension Carcinoma of colon Grandparent Diabetes mellitus Family history of malignant neoplasm of breast Sibling Family history of malignant neoplasm Other Family history of heart disease in male family member before age 55 Family history of malignant neoplasm of male breast Social History Social History Smoking status: Never smoker Second hand tobacco smoke exposure: No Alcohol intake: current Drinks per week: 3 Substance use: never Substance use type: does not use Current Housing: Decline to Answer Concerned About Future Housing: Decline to Answer Difficulty Paying Gas/Electric Bills: Decline to Answer Difficulty Paying for Meds: Decline to Answer Currently Unemployed: Decline to Answer Education: Decline to Answer Difficulty w/ Childcare or Family Care: Decline to Answer Living arrangements: alone Additional living arrangements comments: 10/2021 Occupation/Education: retired Additional occupation/education comments: [employer] Gender identity (if verbalized by the patient): Female Sexual Orientation (if Verbalized by the Patient): Straight or Heterosexual Spiritual care concerns: No Agree to blood products: Yes Comments At time of signature, I have reviewed and agree with nursing past medical, surgical, social and family history unless otherwise noted. Please see nursing chart for further information. There is no relevant family history pertinent to the presenting complaint Exam Narrative: GENERAL: Mildly ill-appearing, well-nourished, and in no acute distress. HEAD: Normocephalic, atraumatic. EYES: EOMI. No redness or drainage. Conjunctivae normal. ENT: Mucous membranes pink and moist. Nares congested with rhinorrhea. TMs normal bilaterally. Throat normal. Uvula midline. NECK: Normal AROM. Supple. No lymphadenopathy. CHEST: No respiratory distress. Clear to auscultation. HEART: Regular rate and rhythm. No murmur appreciated. EXTREMITIES: Normal range of motion. No edema. SKIN: Warm, dry, no rash. Capillary refill normal. Normal skin turgor. NEURO: No focal deficits. Alert and oriented x3. Gait steady. PSYCH: Normal affect. No signs of depression or anxiety. Course Course Level of Care: Express Care Visit Vital Signs Vital signs: Vital Signs Temperature 97.6 F 12/10/24 08:19 Pulse Rate 86 12/10/24 08:19 Respiratory Rate 16 12/10/24 08:19 Blood Pressure 115/76 12/10/24 08:19 Pulse Oximetry 99 12/10/24 08:19 Temperature 97.6 F 12/10/24 08:19 Pulse Rate 86 12/10/24 08:19 Respiratory Rate 16 12/10/24 08:19 Blood Pressure 115/76 12/10/24 08:19 Pulse Oximetry 99 12/10/24 08:19 Reviewed MDM - URI/Sore Throat MDM Narrative Medical decision making narrative: 79-year-old female presents today complaining of nausea, congestion, sinus pressure, cough x4 days. Initially she had some vomiting and diarrhea as well. Vomiting was only on day of onset of symptoms. Diarrhea lasted for 2 days before resolving. Denies any residual abdominal pain or fever or shortness of breath. She has been taking DayQuil and Tylenol with improvement of symptoms. Upon exam, patient is mildly ill appearing with nasal congestion and rhinorrhea. Symptoms likely viral in etiology. Discussed [id number] medication use and duration of illness. Short course of Zofran will be prescribed for her nausea that she can take as needed. Anticipatory guidance given. Vital signs stable. Patient agrees with plan. Anticipatory guidance given. ED precautions given. Differential Diagnosis Differential diagnosis: Likely upper respiratory infection, otitis media, sinusitis, viral infection and bronchitis Critical Care Time Critical Care Time Critical Care Time: No Discharge Plan Discharge Clinical Impression: Viral syndrome Patient Disposition: Home Condition: Stable Instructions: Viral Syndrome (ED) Additional Instructions: Your symptoms are likely due to a viral illness, which is not treated with antibiotics. Virus symptoms can last for up to 7-10days. Take Tylenol for pain or fever. Rest and stay hydrated. Take the Zofran as prescribed for your nausea. Follow up with your PCP in 7 days if symptoms are not improving. Go to the ER immediately if you develop shortness of breath, difficulty swallowing, or any other concerning symptoms. Patient Language: Palestinian Prescriptions: New ondansetron 4 mg tablet,disintegrating 4 mg PO TID PRN (Reason: nausea and vomiting) Qty: 10 0RF No Action aspirin 81 mg tablet,delayed release (DR/EC) 81 mg PO DAILY Qty: 90 3RF calcium citrate-vitamin D3 315 mg-6.25 mcg (250 unit) tablet 1 tablet PO DAILY ibandronate 150 mg tablet 150 mg PO MONTHLY Qty: 3 0RF alprazolam 0.25 mg tablet 0.25 mg PO BID PRN (Reason: anxiety) Qty: 60 0RF Follow-up/Referrals: Ingrid Jenkins APRN [Primary Care Provider, Internal Medicine] Time of Disposition: 08:35
== END 2024-12-10 08:40 | disposition home or self-care (01) ==
PROVIDERS: Emergency Provider Nurse Practitioner; PCP Nurse Practitioner
DX: B34.9 Viral infection, unspecified (principal); M81.0 Age-related osteoporosis without current pathological fracture; F41.9 Anxiety disorder, unspecified; Z79.82 Long term (current) use of aspirin
CPT/HCPCS: 99213; G0463